=== PATIENT | male | born 1965 ===

== ENCOUNTER 2023-11-12 09:40 | Emergency (ER) | payer BC ==
[2023-11-12] MEDS ORDERED: Sodium Chloride 0.9% 10 ML Syringe FLUSH PRN (09:58)
[2023-11-12] MEDS: Sodium Chloride 0.9% 1,000 ML IV SCH (10:15)
[2023-11-12] MEDS: Ondansetron 4 MG/2 ML SDV IVPUSH ONE (10:16)
[2023-11-12 10:18] LABS: BASOPHILS ABSOLUTE AUTO 0.01 K/uL (0.00-0.20); BASOPHILS PERCENT AUTO 0.1 % (0.0-2.0); EOSINOPHILS ABSOLUTE AUTO 0.13 K/uL (0.00-0.50); EOSINOPHILS PERCENT AUTO 1.7 % (0.0-5.0); HEMATOCRIT 48.8 % (39.0-49.0); HEMOGLOBIN 17.5 g/dL (13.1-16.8); LYMPHOCYTES ABSOLUTE AUTO 0.92 K/uL (0.50-3.50); LYMPHOCYTES PERCENT AUTO 11.8 % (10.0-50.0); MEAN CORPUSCULAR HGB CONC 35.9 g/dL (31.7-36.0); MEAN CORPUSCULAR VOLUME 91.9 fL (84.0-98.0); NEUTROPHILS ABSOLUTE AUTO 6.03 K/uL (1.40-7.00); NEUTROPHILS PERCENT AUTO 77.4 % (45.0-80.0); PLATELET COUNT,PLT 143 K/uL (150-350); RED BLOOD CELL COUNT 5.31 M/uL (4.33-5.41); RED CELL DISTRIBUTION WIDTH 12.8 % (11.2-14.1); WHITE BLOOD CELL COUNT,WBC 7.8 K/uL (4.0-10.2)
[2023-11-12 10:35] LABS: ALBUMIN 3.8 g/dL (3.4-5.0); BILIRUBIN TOTAL 0.7 mg/dL (0.2-1.0); CARBON DIOXIDE,CO2 31.1 mmol/L (21.0-32.0); CREATININE 1.26 mg/dL (0.51-1.17); EST CRCL DRUG DOSING (CG) 63.33 mL/min; POTASSIUM,K 4.1 mmol/L (3.5-5.1); PROTEIN TOTAL,TP 7.8 g/dL (6.4-8.2)
[2023-11-12 11:17] VITALS: BP 148/89; PULSE 68
== END 2023-11-12 11:39 | disposition home or self-care (01) ==
LOC: LL.ED 09:40
DX: R19.7 Diarrhea, unspecified (principal); Z88.1 Allergy status to other antibiotic agents
CPT/HCPCS: 36415; 80053; 85025; 96361; 96374; 99284; 99284-25; J2405; J7030; U0002

== ENCOUNTER 2023-11-15 10:02 | Emergency (ER) | payer BC | END 2023-11-15 11:20 | disposition home or self-care (01) | LOC: LL.ED 10:02 | DX: R19.7 Diarrhea, unspecified (principal); Z86.16 Personal history of COVID-19; Z88.1 Allergy status to other antibiotic agents | CPT/HCPCS: 99283 ==